=== PATIENT | female | born 1980 | race Caucasian/White ===

== ENCOUNTER → 2016-09-30 | Outpatient (CLI) | payer MEDICAID ==
[~2016-09-30] MED LIST: CALC-603 PO; CETI-115 PO; FLUO-138 PO; GABA-338 PO; IBUP-1724 PO; LEVO100T12 PO; NYST5ORA7 PO; POTA-12 PO
--- NOTE | 2016-09-30 13:41 | DI ---
INDICATION: ITS.REASON: R06.02 SHORTNESS OF BREATH PROCEDURE: CHEST 2-VIEWS UPRIGHT (PA \T\ LAT) Encounter: Initial COMPARISON: None FINDINGS: Airspace consolidation in the medial right lower lobe. Left lung is clear. There is no pleural effusion or pneumothorax. The heart size, mediastinal contours and pulmonary vascularity are within normal limits. There is no significant skeletal abnormality. IMPRESSION: Right lower lobe pneumonia. .
== END ==
LOC: IMA 12:58
PROVIDERS: ATTEND Nurse Practitioner Family
DX: J18.9 Pneumonia, unspecified organism (principal); R06.02 Shortness of breath